=== PATIENT | male | born 1950 | race African-American/Black ===

== ENCOUNTER 2019-02-03 09:20 | Emergency (ER) | payer OTHER ==
[~2019-02-03] VITALS: Ht 172.7 cm; Wt 83.9 kg
[~2019-02-03 09:20] MED LIST: AMOXICILLIN 50500 MG PO; FLOMAX PO; IBUPROFEN 600600 M1 PO; LIPITOR10 MG PO; LOTREL 5-20 MG1 EACH PO; MINIPRIN81 MG PO
[2019-02-03] MEDS ORDERED: XARELTO10 MG PO (09:38)
[2019-02-03 10:09] LABS: ABSOLUTE NEUTROPHILS 2.2 thou/uL (1.4-8.2); BASOPHILS 0.7 % (0.0-2.0); EOSINOPHILS 2.4 % (0.0-3.0); HEMATOCRIT 41.3 % (42.0-52.0); HEMOGLOBIN 13.9 gm/dL (14.0-18.0); LYMPHOCYTES 32.9 % (24.0-44.0); MCH 32.1 pg (26.0-34.0); MCHC 33.7 g/dL (28.0-37.0); MCV 95.4 fL (80.0-100.0); MONOCYTES 10.8 % (1.0-8.0); PLATELET COUNT 195 thou/uL (150-400); POLYS 53.2 % (36.0-66.0); RBC 4.33 mil/uL (4.50-6.00); RDW 12.7 % (10.5-14.5); WBC 4.1 thou/uL (4.0-11.0)
[2019-02-03 10:16] LABS: ANION GAP 5 mmol/L (7-16); BUN 17 mg/dL (7-18); CALCIUM 9.1 mg/dL (8.5-10.1); CHLORIDE 104 mmol/L (98-107); CO2 29 mmol/L (21-32); GLUCOSE 111 mg/dL (74-106); POTASSIUM 3.9 mmol/L (3.5-5.1); SODIUM 138 mmol/L (136-145)
[2019-02-03 10:26] LABS: ALBUMIN 4.2 g/dL (3.4-5.0); SGOT 19 U/L (15-37); SGPT 19 U/L (30-65); TOTAL BILIRUBIN 0.6 mg/dL (<0.1-1.0); TROPONIN-I <0.06 ng/mL (<0.06)
[2019-02-03] MEDS ORDERED: NORCO 5-325 TA1 EAC1 PO (10:40)
[2019-02-03 10:49] VITALS: BP 137/69
--- NOTE | 2019-02-03 14:50 | EKG ---
[address] [place] [address] ELECTROCARDIOGRAM REPORT Name: RAJTRAVISA Room #: DEP EFREN Arriaga#: [id number] Admission: 02/03/19 Attend Phys: Discharge: 02/03/19 Date of : 46 Report #: [id number] THIS REPORT FOR: //name// [facility] ED Test Date: 2019-02-03 Test Time: 10:01:02 Pat Name: ALYCE ANTHONY Department: Room: Gender: Medical Administrative Specialist: [facility] : 1950 Requested By: Harshil Tai Order Number: [id number] MD: David Luong Measurements Intervals [place] Rate: 58 P: 50 WI: 244 QRS: -46 QRSD: 118 T: 23 QT: 504 QTc: 496 Interpretive Statements Sinus rhythm Prolonged WI interval Nonspecific T-waveabnormalities Compared to ECG 02/23/2007 14:42:57 First degree AV block now present Sinus bradycardia no longer present T-wave abnormality no longer present Electronically Signed On 02-03-2019 14:49:58 CDT by David Luong [email or web address] <ELECTRONICALLY SIGNED> By: David Luong MD 02/03/19 1449 00 00 David Luong MD /SHANKAR
== END 2019-02-03 10:49 | disposition home or self-care (01) ==
LOC: ER 09:20
PROVIDERS: Emergency Medicine
DX: G54.0 Brachial plexus disorders (principal); I10 Essential (primary) hypertension; E78.00 Pure hypercholesterolemia, unspecified; G47.30 Sleep apnea, unspecified; K21.9 Gastro-esophageal reflux disease without esophagitis